=== PATIENT | male | born 1980 | race Caucasian/White ===

== ENCOUNTER 2019-10-29 17:04 | Inpatient (IN) | payer BC, OTHER ==
[2019-10-29] MEDS ORDERED: SODIUM CHLORIDE 1,000 ML IV STA ×2 (18:01→18:44)
[2019-10-29] MEDS ORDERED: ACETAMINOPHEN 1000 MG/100 ML VIAL (NON FORMULARY) IVPB ONE (18:01)
--- NOTE | 2019-10-29 18:02 | PDOC ---
History of Present Illness - General Chief Complaint: Cold Symptoms Stated Complaint: DEHYDRATION,FLULIKE SYMPTOMS Time Seen by Provider: 10/29/19 18:00 - History of Present Illness Initial Comments: 10/29/19 19:22 Chief complaint: Cough and shortness of breath HPI: Cough with purulent sputum, shortness of breath, fever, chills, body aches for 3 days. Today felt "unsteady on his feet". Limited intake of food and fluids. Went to urgent care today, flu swab was negative, referred to ER Review of systems: As noted above. Otherwise review is negative Past medical history: Healthy male, denies serious medical or surgical illness past or present. No home medications except occasional Xanax for sleep Social history: Denies smoking, alcohol, or drugs. 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 with similar respiratory illness 3 weeks ago. Family history: Reviewed and noncontributory Physical exam: Lethargic but oriented x3, shaking chills, no respiratory distress, tachypnea, or dyspnea. HEENT: Normal Neck supple without bruit mass or nodes Chest with rales at the right base posteriorly. Respiratory rate normal and oxygen saturation adequate CV mild tachycardia. No murmurs rubs or gallops. No JVD or edema Abdomen benign Skin with mild psoriasis, no other rash. Turgor adequate. Mucous membranes dry Neurological C2 to 12 intact. Strength full and symmetric. No focal sensorimotor deficits. Cerebellar function intact. Gait appears stable. But there is generalized weakness. Impression: Flulike illness, but flu swab was negative at urgent care. Rule out pneumonia. Dehydration. Plan: X-ray shows a right lower lobe infiltrate. Cultures obtained and antibiotics begun. Hospitalist was contacted and admission accepted under Dr Eduardo. Patient remains hemodynamically stable, and symptoms are improved with fluids, intravenous Tylenol, 10/31/19 07:25 Past History - Past Medical History Allergies/Adverse Reactions: Allergies Allergy/AdvReac Type Severity Reaction Status Date / Time No Known Allergies Allergy Verified 10/29/19 17:11 Home Medications: Ambulatory Orders Alprazolam [Xanax] 0.5 mg PO PRN 10/29/19 COPD: No Psychiatric Problems: Yes (anxiety) Other medical history: psoriastic arthritis - Psycho Social/Smoking Cessation Hx Smoking History: Never smoked Hx Alcohol Use: No Drug/Substance Use Hx: No *Physical Exam - Vital Signs Last Vital Signs Temp Pulse Resp BP Pulse Ox 100.6 F H 101 H 18 118/74 97 10/29/19 17:05 10/29/19 17:05 10/29/19 17:05 10/29/19 17:05 10/29/19 17:05 ED Treatment Course - LABORATORY CBC & Chemistry Diagram: 10/30/19 07:22 10/30/19 07:22 Medical Decision Making - Medical Decision Making 10/31/19 07:27 Chest x-ray Mara reviewed. There appears to be a patchy right lower lobe infiltrate. No effusion. EKG from urgent care center was reviewed. Normal Laboratories obtained here show a normal white blood count, mildly depressed sodium, and elevated lactic acid. Fluids were administered, blood cultures were obtained, and antibiotics were begun. Blood pressure is stable. Patient admitted and will follow lactic acid. Discharge - Discharge Information Problems reviewed: Yes Clinical Impression/Diagnosis: Pneumonia Qualifiers: Pneumonia type: due to unspecified organism Laterality: right Lung location: lower lobe of lung Qualified Code(s): J18.9 - Pneumonia, unspecified organism Condition: Stable - Admission Yes - Follow up/Referral - Patient Discharge Instructions - Post Discharge Activity
[2019-10-29] MEDS ORDERED: ACETAMINOPHEN INJECTION 100 ML IVPB ONE (18:08)
[2019-10-29 18:37] LABS: BASO % 0.5 % (0-2.0); HEMATOCRIT 44.9 % (35.4-49); HEMOGLOBIN 15.1 GM/dl (11.7-16.9); MCH 30.6 pg (25.7-33.7); MCHC 33.6 g/dl (32.0-35.9); MEAN PLT VOLUME 8.6 fl (7.5-11.1); MONO % 7.1 % (3.8-10.2); NEUT % 81.4 % (42.8-82.8); PLATELET COUNT 199 K/MM3 (134-434); RBC 4.93 M/mm3 (4.00-5.60); RDW 11.7 % (11.9-15.9); WHITE BLOOD COUNT 8.5 K/mm3 (4.0-10.8)
[2019-10-29 18:41] LABS: ALBUMIN 3.6 g/dl (3.4-5.0); BILIRUBIN,TOTAL 0.8 mg/dl (0.2-1); CREATININE 1.2 mg/dl (0.55-1.3); POTASSIUM 4.1 mmol/L (3.5-5.1); TOT PROT 7.2 g/dl (6.4-8.2)
[2019-10-29] MEDS ORDERED: CEFTRIAXONE 1,000 MG in DEXTROSE 5%-WATER - 50 ML IVPB ONE (18:44)
[2019-10-29] MEDS ORDERED: AZITHROMYCIN IVPB 500 MG in DEXTROSE 5%-WATER - 250 ML IVPB ONE (18:45)
[2019-10-29] MEDS ORDERED: cefTRIAXone SODIUM 1 GM VIAL ONE (18:56)
[2019-10-29] MEDS ORDERED: AZITHROMYCIN 500 MG VIAL IVPB ONE (18:56)
[2019-10-29 18:58] LABS: AMORP URATES 1+ /hpf (NONE SEEN); EPITHELIAL CELLS FEW /hpf; URINE MUCUS 1+
--- NOTE | 2019-10-29 20:36 | HP ---
Admitting History and Physical - Primary Care Physician PCP: Dr. Eduardo - Admission Chief Complaint: cold symptoms History of Present Illness: 39 year old male with no prior medical/surgical, does take xanax some times for anxiety arrived to ED at [place] for cough with purulent discharge, SOB, fever, chills, body ache for 3 days, also complain of limited fluids/ po intake. Patient went to flu swab was negative and sen to ER for further evaluation. History Source: Patient Limitations to Obtaining History: No Limitations - Past Medical History Psych: Yes: Anxiety - Past Surgical History Past Surgical History: Yes: None - Smoking History Smoking history: Never smoked - Alcohol/Substance Use Hx Alcohol Use: No History of Substance Use: reports: None - Social History Usual Living Arrangement: Yes: With Spouse ADL: Independent History of Recent Travel: No Home Medications - Allergies Allergies/Adverse Reactions: Allergies Allergy/AdvReac Type Severity Reaction Status Date / Time No Known Allergies Allergy Verified 10/29/19 17:11 - Home Medications Home Medications: Ambulatory Orders Alprazolam [Xanax] 0.5 mg PO PRN 10/29/19 Family Medical History Family History: Denies Review of Systems - Review of Systems Constitutional: reports: Chills, Fever, Loss of Appetite, Malaise Eyes: reports: No Symptoms HENT: reports: No Symptoms Neck: reports: No Symptoms Cardiovascular: reports: No Symptoms Respiratory: reports: Cough, SOB Gastrointestinal: reports: No Symptoms Genitourinary: reports: No Symptoms Musculoskeletal: reports: No Symptoms Integumentary: reports: No Symptoms Neurological: reports: No Symptoms Endocrine: reports: No Symptoms Hematology/Lymphatic: reports: No Symptoms Psychiatric: reports: No Symptoms Physical Examination Vital Signs: Vital Signs Temperature 98.9 F 10/29/19 19:40 Pulse Rate 93 H 10/29/19 19:40 Respiratory Rate 19 10/29/19 19:40 Blood Pressure 102/63 10/29/19 19:40 O2 Sat by Pulse Oximetry (%) 98 10/29/19 19:40 Constitutional: Yes: No Distress, Calm Eyes: Yes: Conjunctiva Clear, EOM Intact HENT: Yes: Atraumatic, Normocephalic Neck: Yes: Supple, Trachea Midline Cardiovascular: Yes: S1, S2 Respiratory: Yes: Regular, Rales Gastrointestinal: Yes: Normal Bowel Sounds, Soft Renal/: Yes: WNL Musculoskeletal: Yes: WNL Extremities: Yes: WNL Edema: No Peripheral Pulses WNL: Yes Integumentary: Yes: WNL Neurological: Yes: Alert, Oriented Labs: CBC, BMP 10/29/19 18:10 10/29/19 18:10 Imaging - Results Chest X-ray: Report Reviewed (X-ray shows a right lower lobe infiltrate.) Problem List - Problems (1) Anxiety Code(s): F41.9 - ANXIETY DISORDER, UNSPECIFIED (2) Pneumonia Code(s): J18.9 - PNEUMONIA, UNSPECIFIED ORGANISM Qualifiers: Pneumonia type: due to unspecified organism Laterality: right Lung location: lower lobe of lung Qualified Code(s): J18.9 - Pneumonia, unspecified organism Assessment/Plan 39 year old male with no prior medical/surgical, does take xanax some times for anxiety arrived to ED at [place] for cough with purulent discharge, SOB, fever, chills, body ache for 3 days, also complain of limited fluids/ po intake. Patient went to flu swab was negative and sen to ER for further evaluation. # Community acquired pneumonia - CXR: right lower lobe infiltrate - wbc:8.5, Tmax:100.6, Lactic acid: 2.5 ---> trend lactic level - UA: negative - follow up blood culture - In ED given Antipyretics,ceftriaxone/Azithromycin IVPBx1, given 2 L NS IVF - continue with Azithromycin and Ceftriaxone daily IVPB - continue with tylenol PRN - continue with nebs PRN - continue with o2 via NC PRN - Continue with IVF - follow up ID - follow up cbc, BMP in AM # anxiety - xanax 0.25 HS PRN FEN: NS IVF, monitor lytes, regular diet VTE: early ambulation, Heparin SQ Dispo: Med-surg Visit type - Emergency Visit Emergency Visit: Yes ED Registration Date: 10/29/19 Care time: The patient presented to the Emergency Department on the above date and was hospitalized for further evaluation of their emergent condition. - New Patient This patient is new to me today: Yes Date on this admission: 10/30/19 - Critical Care Critical Care patient: No
[2019-10-29] MEDS ORDERED: IPRATROPIUM BR 0.02% 0.5 MG/2.5 ML VIAL.NEB. NEB PRN (20:53)
[2019-10-29] MEDS ORDERED: ALBUTEROL SO4 0.083% IH SOL 2.5 MG/3 ML VIAL.NEB. NEB PRN (20:53)
[2019-10-29] MEDS ORDERED: SODIUM CHLORIDE 1,000 ML IV SCH (21:00)
[2019-10-29 22:21] VITALS: BMI 22.1
[2019-10-29] MEDS: ALPRAZolam 0.25 MG TABLET PO PRN (23:05)
[2019-10-29] MEDS: HEPARIN NA (PORCINE) 5,000 UNITS/ML 1ML VIAL SQ SCH (23:05)
[2019-10-30] MEDS: ACETAMINOPHEN 325 MG TABLET (FP) PO PRN ×2 (04:38→09:54)
[2019-10-30 08:19] LABS: HEMATOCRIT 39.8 % (35.4-49); HEMOGLOBIN 13.6 GM/dl (11.7-16.9); MCH 31.3 pg (25.7-33.7); MCHC 34.3 g/dl (32.0-35.9); MEAN CELL VOLUME 91.3 fl (80-96); MEAN PLT VOLUME 8.4 fl (7.5-11.1); PLATELET COUNT 172 K/MM3 (134-434); RBC 4.36 M/mm3 (4.00-5.60); RDW 11.4 % (11.9-15.9); WHITE BLOOD COUNT 5.4 K/mm3 (4.0-10.8)
[2019-10-30 08:25] LABS: CALCIUM 8.1 mg/dl (8.5-10); CREATININE 0.9 mg/dl (0.55-1.3); POTASSIUM 4.1 mmol/L (3.5-5.1)
[2019-10-30] MEDS ORDERED: SODIUM CHLORIDE 1,000 ML IV STA ×2 (09:52→10:16)
[2019-10-30] MEDS ORDERED: SODIUM CHLORIDE 1,000 ML IV SCH (09:52)
[2019-10-30] MEDS: HEPARIN NA (PORCINE) 5,000 UNITS/ML 1ML VIAL SQ SCH ×2 (09:53→21:49)
[2019-10-30] MEDS: AZITHROMYCIN IVPB 500 MG/250 ML BAG IVPB SCH (09:54)
[2019-10-30] MEDS ORDERED: CEFTRIAXONE 1 G/50 ML PREMIX 50 ML IVPB SCH (10:00)
--- NOTE | 2019-10-30 10:13 | PN ---
Progress Note (short form) - Note Progress Note: ID CONSULT DICTATED R/O COMMUNITY ACQUIRED V. ATYPICAL PNEUMONIA ? VIRAL SYNDROME AWAIT C/S VIRAL RESP PANEL EMPIRIC CEFTRIAXONE/ ZITHROMAX
--- NOTE | 2019-10-30 10:59 | CONS ---
INFECTIOUS DISEASE CONSULTATION DATE OF CONSULTATION: DATE OF DICTATION: 10/30/2019 HISTORY: The patient is a 39-year-old male previously healthy evaluated for possible pneumonia. He presented to the emergency room with a 3-day history of cough productive of sputum production, subjective fevers, chills, body aches, and anorexia. He was evaluated in the emergency room where he was noted to have fever at 100.6. Cultures were obtained. He was empirically treated with Zithromax and ceftriaxone. The patient lives at home with his who recently had an upper respiratory tract infection for the past 2-3 weeks. He reports cough productive of yellowish sputum. He denies any hemoptysis. He complains of chest tightness and dyspnea. No nausea, vomiting. He denies any recent hospitalizations or recent antibiotic therapy. He has a history of psoriasis, however, is not on immunosuppressive therapy. He is a nonsmoker. Recent travel to [place]. He has not received influenza or pneumococcal vaccines. PAST MEDICAL HISTORY: Positive for psoriasis treated with topical therapy. No history of anti-TNF agents. ALLERGIES: No known allergies. MEDICATIONS: Include vancomycin, ceftriaxone, Tylenol, Xanax. SOCIAL HISTORY: He worked in [employer]. Nonsmoker. Occasional ETOH. SYSTEMS REVIEW: Neurologic: No loss of consciousness, seizure activity, focal weakness. Cardiac: Negative chest pain or palpitations. Respiratory: As per HPI. Gastrointestinal: Negative vomiting or diarrhea. Genitourinary: Negative for urinary tract infection. LABORATORY DATA: White count 8.4, hematocrit 44.9, platelets 199, creatinine 1.2, lactic acid 2.5. Urinalysis 0-2 white cells. Chest x-ray shows increased markings at the right base suggestive of infiltrate. PHYSICAL EXAMINATION: General: On exam, he is awake and alert. He is not acutely toxic appearing. Vital Signs: Temperature 101.4, blood pressure 119/77, pulse 116 regular, respirations 19 per minute. HEENT: Sclerae anicteric. Heart: Sounds S1, S2. Lungs: Few rhonchi bilaterally. Abdomen: Soft, nontender. Extremities: Negative for edema. IMPRESSION: 1. Rule out community-acquired versus atypical right lower lobe pneumonia. 2. Possible viral syndrome. 3. Psoriasis, not on immunosuppressive therapy. PLAN: Await cultures. Obtain viral respiratory panel. Urine Legionella antigen. Sputum culture. Empiric antibiotic coverage with ceftriaxone and Zithromax. We will follow. Thank you for the kind referral. DENA NGUYỄN M.D. [id number]
[2019-10-30] MEDS: SODIUM CHLORIDE 1,000 ML IV SCH (11:14)
[2019-10-30] MEDS: ACETAMINOPHEN 325 MG TABLET (FP) PO SCH ×2 (11:15→16:47)
[2019-10-30] MEDS ORDERED: IBUPROFEN 800 MG/8 ML IJ IVPB ONE (14:45)
[2019-10-30] MEDS: ALBUTEROL SO4 2.5/IPRATROPIUM 0.5 INH SOL 3 ML VIAL.NEB. NEB SCH ×2 (15:49→21:49)
--- NOTE | 2019-10-30 18:42 | CON.PULM ---
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 WENT TO [facility] AND HAD NEGATIVE FLU TEST. CAME TO ED AND FOUND TO HAVE PNEUMONIA HENCE ADMITTED FOR TREATMENT. PATIENT'S WAS ILL WITH SIMILAR SYMPTOMS. - History Source History Provided By: Patient, Family Member Limitations to Obtaining History: No Limitations - Past Medical History [employer]CR[employer]: No: Alzheimer's Cardio/Vascular: No: AFIB Pulmonary: No: Asthma Gastrointestinal: No: Ascites Hepatobiliary: No: Cirrhosis Renal/: No: Renal Failure Heme/Onc: No: Anemia Psych: Yes: Anxiety - Past Surgical History Past Surgical History: Yes: None - Alcohol/Substance Use Hx Alcohol Use: No History of Substance Use: reports: None - Smoking History Smoking history: Never smoked Have you smoked in the past 12 months: No - Social History ADL: Independent Place of : Other History of Recent Travel: No Home Medications - Allergies Allergies/Adverse Reactions: Allergies Allergy/AdvReac Type Severity Reaction Status Date / Time No Known Allergies Allergy Verified 10/29/19 17:11 - Home Medications Home Medications: Ambulatory Orders Alprazolam [Xanax] 0.5 mg PO PRN 10/29/19 Review of Systems - Review of Systems Constitutional: reports: Fever Eyes: denies: Blurred Vision HENT: denies: Difficult Swallowing Neck: denies: Decreased ROM Cardiovascular: denies: Chest Pain Respiratory: reports: Cough, Exercise Intolerance, SOB, SOB on Exertion, Wheezing. denies: Hemoptysis Gastrointestinal: denies: Abdominal Pain Genitourinary: denies: Burning Physical Exam Vital Sings: Vital Signs Temperature 101.0 F H 10/30/19 15:59 Pulse Rate 118 H 10/30/19 14:36 Respiratory Rate 18 10/30/19 14:36 Blood Pressure 129/84 10/30/19 14:36 O2 Sat by Pulse Oximetry (%) 97 10/30/19 09:00 Constitutional: Yes: Calm Eyes: Yes: EOM Intact HENT: Yes: Normocephalic Neck: Yes: Trachea Midline Cardiovascular: Yes: Regular Rate and Rhythm, S1, S2 Respiratory: Yes: Rhonchi (RIGHT BASE) Gastrointestinal: Yes: Normal Bowel Sounds Edema: No Labs: CBC, BMP 10/30/19 07:22 10/30/19 07:22 Imaging - Results Chest X-ray: Report Reviewed, Image Reviewed Cat Scan: Report Reviewed, Image Reviewed Problem List - Problems (1) Anxiety Code(s): F41.9 - ANXIETY DISORDER, UNSPECIFIED (2) Pneumonia Code(s): J18.9 - PNEUMONIA, UNSPECIFIED ORGANISM Qualifiers: Pneumonia type: due to unspecified organism Laterality: right Lung location: lower lobe of lung Qualified Code(s): J18.9 - Pneumonia, unspecified organism Assessment/Plan PANCULTURE/IV ABS/SHORT COURSE STEROIDS BRONCHODILATORS/O2/DVT PROPHYLAXSIS ID EVAL AND WORKUP NOTED Simin WONG MD
[2019-10-30] MEDS: methylPREDNISolone NA SUCC 40 MG/1 ML VIAL IVPUSH SCH ×2 (19:29→21:49)
[2019-10-30] MEDS ORDERED: IBUPROFEN 800 MG/8 ML IJ IVPB PRN (21:09)
--- NOTE | 2019-10-30 21:17 | PN ---
Documentation entered by Kate Knapp SCRIBE, acting as scribe for Zeina Zuñiga NP. Physical Exam: SUBJECTIVE: Patient seen and examined. Patient states he is still feeling warm, otherwise feeling much better than prior to arrival. Pt reports his had bronchitis for several weeks. He did not get a flu shot. OBJECTIVE: Vital Signs Period Temp Pulse Resp BP Sys/[place] Pulse Ox Last 24 Hr 97.9 F-101.4 F 86-116 18-19 102-119/63-77 97-100 GENERAL: A&Ox3, in no acute distress. Pale LUNGS: Diminished breath sounds RML, RLL posteriorly. HEART: Regular rate and rhythm, S1, S2 ABDOMEN: Soft, nontender, nondistended EXTREMITIES: 2+ pulses, warm, well-perfused, no edema. NEUROLOGICAL: Cranial nerves II through XII grossly intact. Normal speech, gait not observed. PSYCH: Normal mood, normal affect. SKIN: Warm, dry, normal turgor Laboratory Results - last 24 hr 10/29/19 10/29/19 10/29/19 18:10 18:10 18:10 WBC 8.5 RBC 4.93 Hgb 15.1 Hct 44.9 MCV 91.0 MCH 30.6 MCHC 33.6 RDW 11.7 L Plt Count 199 MPV 8.6 Absolute Neuts (auto) 7.0 Neutrophils % 81.4 Lymphocytes % 11.0 Monocytes % 7.1 Eosinophils % 0.0 Basophils % 0.5 Sodium 131 L Potassium 4.1 Chloride 98 Carbon Dioxide 24 Anion Gap 9 BUN 15.0 Creatinine 1.2 Est GFR (CKD-EPI)AfAm 87.75 Est GFR (CKD-EPI)NonAf 75.72 Random Glucose 151 H Lactic Acid Calcium 9.0 Total Bilirubin 0.8 AST 22 ALT 22 Alkaline Phosphatase 51 Total Protein 7.2 Albumin 3.6 Urine Color Yellow Urine Appearance Clear Urine pH 6.0 Urine Protein 1+ H Urine Glucose (UA) Negative Urine Ketones Negative Urine Blood 1+ H Urine Nitrite Negative Urine Bilirubin Negative Urine Urobilinogen 0.2 Ur Leukocyte Esterase Negative Urine RBC 5-10 Urine WBC 0-2 Ur Transition Epith Cell Few Amorphous Urates 1+ Urine Mucus 1+ 10/29/19 10/30/19 10/30/19 18:45 04:00 07:22 WBC 5.4 RBC 4.36 Hgb 13.6 Hct 39.8 MCV 91.3 MCH 31.3 MCHC 34.3 RDW 11.4 L Plt Count 172 MPV 8.4 Absolute Neuts (auto) Neutrophils % Lymphocytes % Monocytes % Eosinophils % Basophils % Sodium Potassium Chloride Carbon Dioxide Anion Gap BUN Creatinine Est GFR (CKD-EPI)AfAm Est GFR (CKD-EPI)NonAf Random Glucose Lactic Acid 2.5 H* 1.7 Calcium Total Bilirubin AST ALT Alkaline Phosphatase Total Protein Albumin Urine Color Urine Appearance Urine pH Urine Protein Urine Glucose (UA) Urine Ketones Urine Blood Urine Nitrite Urine Bilirubin Urine Urobilinogen Ur Leukocyte Esterase Urine RBC Urine WBC Ur Transition Epith Cell Amorphous Urates Urine Mucus 10/30/19 07:22 WBC RBC Hgb Hct MCV MCH MCHC RDW Plt Count MPV Absolute Neuts (auto) Neutrophils % Lymphocytes % Monocytes % Eosinophils % Basophils % Sodium 133 L Potassium 4.1 Chloride 103 Carbon Dioxide 22 Anion Gap 8 BUN 11.0 Creatinine 0.9 Est GFR (CKD-EPI)AfAm 124.26 Est GFR (CKD-EPI)NonAf 107.21 Random Glucose 118 H Lactic Acid Calcium 8.1 L Total Bilirubin AST ALT Alkaline Phosphatase Total Protein Albumin Urine Color Urine Appearance Urine pH Urine Protein Urine Glucose (UA) Urine Ketones Urine Blood Urine Nitrite Urine Bilirubin Urine Urobilinogen Ur Leukocyte Esterase Urine RBC Urine WBC Ur Transition Epith Cell Amorphous Urates Urine Mucus Active Medications Generic Name Dose Route Start Last Admin Trade Name Keenanq PRN Reason Stop Dose Admin Acetaminophen 650 mg 10/29/19 20:53 10/30/19 04:38 Tylenol - PO 650 mg Q4H PRN Administration FEVER Albuterol Sulfate 1 amp 10/29/19 20:53 Ventolin 0.083% Nebulizer Soln - NEB Q6H PRN SHORT OF BREATH/WHEEZING Alprazolam 0.25 mg 10/29/19 20:53 10/29/19 23:05 Xanax - PO 0.25 mg HS PRN Administration ANXIETY Heparin Sodium (Porcine) 5,000 unit 10/29/19 22:00 10/29/19 23:05 Heparin - SQ 5,000 unit BID HECTOR Administration Sodium Chloride 1,000 mls @ 42 mls/hr 10/29/19 21:00 10/29/19 21:07 Normal Saline - IV 42 mls/hr ASDIR HECTOR Administration Azithromycin 500 mg in 250 mls @ 250 mls/hr 10/30/19 10:00 Zithromax 500mg Ivpb (Pre-Docked) IVPB 11/04/19 09:59 DAILY [facility] Ceftriaxone Sodium 50 mls @ 100 mls/hr 10/30/19 10:00 Ceftriaxone 1 Gm-D5w Bag IVPB 11/04/19 23:59 DAILY [facility] Protocol Ipratropium [place] 1 amp 10/29/19 20:53 Atrovent 0.02% Nebulizer - NEB Q6H PRN WHEEZING ASSESSMENT/PLAN: 39 year-old male with no significant PMH admitted for severe sepsis secondary to pneumonia. Severe sepsis secondary to community-acquired pneumonia --met severe sepsis criteria on admission: T100.6, p101, infiltrate right lung base, lactic acid 2.5 --10/30 CT chest: extensive consolidation RLL --spiked to 102.9 today, no leukocytosis --fluid bolused 2L, BP stable but tachycardic, making good urine --continue ceftriaxone (day #2) and azithromycin (day #2) --duonebs scheduled --rapid flu negative --Legionella pending --respiratory virus panel PCR pending --blood cultures NGTD --Tylenol, Motrin PRN for fever Mild anxiety --continue xanax PRN FEN Fluids: NS@125mL/hr Electrolytes: replete as indicated Nutrition: regular diet DVT prophylaxis: subq heparin Dispo: continues to require inpatient care. Full code. Visit type - Emergency Visit Emergency Visit: Yes ED Registration Date: 10/29/19 Care time: The patient presented to the Emergency Department on the above date and was hospitalized for further evaluation of their emergent condition. - New Patient This patient is new to me today: Yes Date on this admission: 10/30/19 - Critical Care Critical Care patient: Yes Total Critical Care Time (in minutes): 45 Critical Care Statement: The care of this patient involved high complexity decision making to prevent further life threatening deterioration of the patient 's condition and/or to evaluate & treat vital organ system(s) failure or risk of failure. Zeina Zuñiga NP: This documentation has been prepared by the Ra jolly Maria, SCRIBE, under my direction and personally reviewed by me in its entirety. I confirm that the documentation accurately reflects all work, treatment, procedures, and medical decision making performed by me.
[2019-10-31] MEDS: methylPREDNISolone NA SUCC 40 MG/1 ML VIAL IVPUSH SCH ×4 (03:00→21:56)
[2019-10-31 08:13] LABS: ALBUMIN 2.7 g/dl (3.4-5.0); BILIRUBIN,TOTAL 0.4 mg/dl (0.2-1); CREATININE 0.7 mg/dl (0.55-1.3); POTASSIUM 4.2 mmol/L (3.5-5.1); TOT PROT 5.8 g/dl (6.4-8.2)
[2019-10-31 08:21] LABS: EOS % 0.1 % (0-4.5); MEAN CELL VOLUME 92.1 fl (80-96)
[2019-10-31 08:23] LABS: HEMATOCRIT 38.4 % (35.4-49); HEMOGLOBIN 12.8 GM/dl (11.7-16.9); LYMPH % 11.6 % (8-40); MCH 30.7 pg (25.7-33.7); MCHC 33.3 g/dl (32.0-35.9); MEAN PLT VOLUME 8.4 fl (7.5-11.1); MONO % 3.2 % (3.8-10.2); NEUT % 85.1 % (42.8-82.8); PLATELET COUNT 159 K/MM3 (134-434); RBC 4.17 M/mm3 (4.00-5.60); RDW 11.8 % (11.9-15.9); WHITE BLOOD COUNT 3.8 K/mm3 (4.0-10.8)
[2019-10-31] MEDS: HEPARIN NA (PORCINE) 5,000 UNITS/ML 1ML VIAL SQ SCH ×2 (09:35→21:56)
[2019-10-31] MEDS: AZITHROMYCIN IVPB 500 MG/250 ML BAG IVPB SCH (09:35)
--- NOTE | 2019-10-31 09:44 | PN ---
Progress Note, Physician History of Present Illness: AWAKE, ALERT OOB IN CHAIR + COUGH YELLOW SPUTUM SCANT BLOOD STREAKED NO C/O DYSPNEA/ CHEST PAIN NO C/O FEVER/ CHILLS TEMPS DOWN CT CHEST EXTENSIVE RLL CONSOLIDATION - Current Medication List Current Medications: Active Medications Acetaminophen (Tylenol -) 650 mg PO Q6H HECTOR Last Admin: 10/30/19 16:47 Dose: 650 mg Albuterol/Ipratropium (Duoneb -) 1 amp NEB RTID HECTOR Last Admin: 10/30/19 21:49 Dose: 1 amp Alprazolam (Xanax -) 0.25 mg PO HS PRN PRN Reason: ANXIETY Last Admin: 10/29/19 23:05 Dose: 0.25 mg Heparin Sodium (Porcine) (Heparin -) 5,000 unit SQ BID HECTOR Last Admin: 10/31/19 09:35 Dose: 5,000 unit Azithromycin (Zithromax 500mg Ivpb (Pre-Docked)) 500 mg in 250 mls @ 250 mls/ hr IVPB DAILY [facility] Stop: 11/04/19 09:59 Last Admin: 10/31/19 09:35 Dose: 250 mls/hr Ceftriaxone Sodium (Ceftriaxone 1 Gm-D5w Bag) 50 mls @ 100 mls/hr IVPB DAILY [facility]; Protocol Stop: 11/04/19 23:59 Last Admin: 10/30/19 09:53 Dose: 100 mls/hr Sodium Chloride (Normal Saline -) 1,000 mls @ 125 mls/hr IV ASDIR HECTOR Last Admin: 10/30/19 11:14 Dose: 125 mls/hr Ibuprofen (Caldolor Injection -) 800 mg IVPB Q8H PRN PRN Reason: FEVER Methylprednisolone Sodium Succinate (Solu-Medrol -) 40 mg IVPUSH Q6H-IV HECTOR Stop: 11/01/19 08:00 Last Admin: 10/31/19 09:35 Dose: 40 mg - Objective Vital Signs: Vital Signs Temperature 97.3 F L 10/31/19 06:20 Pulse Rate 82 10/31/19 06:20 Respiratory Rate 18 10/31/19 06:20 Blood Pressure 106/72 10/31/19 06:20 O2 Sat by Pulse Oximetry (%) 98 10/31/19 08:36 Constitutional: Yes: No Distress Eyes: Yes: Conjunctiva Clear Cardiovascular: Yes: Regular Rate and Rhythm, S1, S2 Respiratory: Yes: Other (DECREASED BS R BASE) Gastrointestinal: Yes: Normal Bowel Sounds, Soft. No: Tenderness Edema: No Labs: CBC, BMP 10/31/19 07:26 10/31/19 07:26 Assessment/Plan RLL COMMUNITY ACQUIRED V. ATYPICAL PNEUMONIA AWAIT C/S CONTINUE ZITHROMAX/ CEFTRIAXONE
--- NOTE | 2019-10-31 09:59 | PN ---
Progress Note (short form) - Note Progress Note: PULMONARY AWAKE/ALERT/AFEBRILE ANICTERIC RIGHT BASE DIMINISHED SOUNDS W RHONCHI S1S2 NO M BS+ NO EDEMA LABS/MEDS/NOTES/IMAGES REVIEWED ID INCREASED CONCENTRATION OF ROCEPHIN TO 2 GMS (1) Anxiety Code(s): F41.9 - ANXIETY DISORDER, UNSPECIFIED (2) Pneumonia Code(s): J18.9 - PNEUMONIA, UNSPECIFIED ORGANISM Qualifiers: Pneumonia type: due to unspecified organism Laterality: right Lung location: lower lobe of lung Qualified Code(s): J18.9 - Pneumonia, unspecified organism Assessment/Plan PANCULTURE AND URINE ANTIGENS ARE NEGATIVE /IV ABS/SHORT COURSE STEROIDS BRONCHODILATORS/O2/DVT PROPHYLAXSIS ID EVAL AND WORKUP NOTED R MARVIN RINALDI Problem List - Problems (1) Anxiety Code(s): F41.9 - ANXIETY DISORDER, UNSPECIFIED (2) Pneumonia Code(s): J18.9 - PNEUMONIA, UNSPECIFIED ORGANISM Qualifiers: Pneumonia type: due to unspecified organism Laterality: right Lung location: lower lobe of lung Qualified Code(s): J18.9 - Pneumonia, unspecified organism
[2019-10-31] MEDS: ALBUTEROL SO4 2.5/IPRATROPIUM 0.5 INH SOL 3 ML VIAL.NEB. NEB SCH ×3 (10:13→21:55)
[2019-10-31] MEDS: CEFTRIAXONE 2 GM-D5W BAG 2 GM/50 ML BAG IVPB SCH (11:00)
[2019-10-31] MEDS: ACETAMINOPHEN 325 MG TABLET (FP) PO SCH ×3 (11:30→21:56)
[2019-10-31] MEDS: SODIUM CHLORIDE 1,000 ML IV SCH (14:14)
--- NOTE | 2019-10-31 14:53 | PN ---
Documentation entered by Kate Knapp SCRIBE, acting as scribe for Zeina Zuñiga NP. Physical Exam: SUBJECTIVE: Patient seen and examined. Feels a little better. Denies fever, sweats, chills. OBJECTIVE: Vital Signs Period Temp Pulse Resp BP Sys/Livingston Pulse Ox Last 24 Hr 97.3 F-102.9 F 82-118 18-18 104-129/68-84 97-98 GENERAL: A&Ox3, in no acute distress. Pale LUNGS: Diminished breath sounds RML, RLL posteriorly. Poor air movement bilaterally. HEART: Regular rate and rhythm, S1, S2 ABDOMEN: Soft, nontender, nondistended EXTREMITIES: 2+ pulses, warm, well-perfused, no edema. NEUROLOGICAL: Cranial nerves II through XII grossly intact. Normal speech, gait not observed. Laboratory Results - last 24 hr 10/30/19 10/30/19 10/30/19 07:22 07:22 10:00 WBC 5.4 RBC 4.36 Hgb 13.6 Hct 39.8 MCV 91.3 MCH 31.3 MCHC 34.3 RDW 11.4 L Plt Count 172 MPV 8.4 Sodium 133 L Potassium 4.1 Chloride 103 Carbon Dioxide 22 Anion Gap 8 BUN 11.0 Creatinine 0.9 Est GFR (CKD-EPI)AfAm 124.26 Est GFR (CKD-EPI)NonAf 107.21 Random Glucose 118 H Lactic Acid Calcium 8.1 L Influenza A (Rapid) Negative Influenza B (Rapid) Negative 10/30/19 10:00 WBC RBC Hgb Hct MCV MCH MCHC RDW Plt Count MPV Sodium Potassium Chloride Carbon Dioxide Anion Gap BUN Creatinine Est GFR (CKD-EPI)AfAm Est GFR (CKD-EPI)NonAf Random Glucose Lactic Acid 1.0 Calcium Influenza A (Rapid) Influenza B (Rapid) Active Medications Generic Name Dose Route Start Last Admin Trade Name Freq PRN Reason Stop Dose Admin Acetaminophen 650 mg 10/30/19 10:30 10/30/19 16:47 Tylenol - PO 650 mg Q6H HECTOR Administration Albuterol/Ipratropium 1 amp 10/30/19 14:00 10/30/19 21:49 Duoneb - NEB 1 amp RTID HECTOR Administration Alprazolam 0.25 mg 10/29/19 20:53 10/29/19 23:05 Xanax - PO 0.25 mg HS PRN Administration ANXIETY Heparin Sodium (Porcine) 5,000 unit 10/29/19 22:00 10/30/19 21:49 Heparin - SQ 5,000 unit BID HECTOR Administration Azithromycin 500 mg in 250 mls @ 250 mls/hr 10/30/19 10:00 10/30/19 09:54 Zithromax 500mg Ivpb (Pre-Docked) IVPB 11/04/19 09:59 250 mls/hr DAILY HECTOR Administration Ceftriaxone Sodium 50 mls @ 100 mls/hr 10/30/19 10:00 10/30/19 09:53 Ceftriaxone 1 Gm-D5w Bag IVPB 11/04/19 23:59 100 mls/hr DAILY HECTOR Administration Protocol Sodium Chloride 1,000 mls @ 125 mls/hr 10/30/19 10:17 10/30/19 11:14 Normal Saline - IV 125 mls/hr ASDIR HECTOR Administration Ibuprofen 800 mg 10/30/19 21:09 Caldolor Injection - IVPB Q8H PRN FEVER Methylprednisolone Sodium Succinate 40 mg 10/30/19 18:45 10/31/19 03:00 Solu-Medrol - IVPUSH 11/01/19 08:00 40 mg Q6H-IV HECTOR Administration ASSESSMENT/PLAN: 39 year-old male with no significant PMH admitted for severe sepsis secondary to pneumonia. Severe sepsis secondary to community-acquired pneumonia --Tm 102.9, Tc 97.3; no leukocytosis; lactic acid trended to wnl; tachycardia resolved, BP stable --10/30 CT chest: extensive consolidation RLL --continue ceftriaxone (day #3) and azithromycin (day #3) --stop IV fluids --duonebs scheduled --rapid flu negative; urine pna Ag negative; blood cultures NGTD --Tylenol, Motrin PRN for fever --encouraged incentive spirometer Mild anxiety --continue xanax PRN FEN Fluids: PO intake adequate Electrolytes: replete as indicated Nutrition: regular diet DVT prophylaxis: subq heparin Dispo: continues to require inpatient care. Full code. Visit type - Emergency Visit Emergency Visit: Yes ED Registration Date: 10/29/19 Care time: The patient presented to the Emergency Department on the above date and was hospitalized for further evaluation of their emergent condition. - New Patient This patient is new to me today: No - Critical Care Critical Care patient: No Zeina Zuñiga NP: This documentation has been prepared by the Ra jolly Maria, SCRIBE, under my direction and personally reviewed by me in its entirety. I confirm that the documentation accurately reflects all work, treatment, procedures, and medical decision making performed by me.
[2019-11-01] MEDS: methylPREDNISolone NA SUCC 40 MG/1 ML VIAL IVPUSH SCH (02:50)
[2019-11-01] MEDS: ACETAMINOPHEN 325 MG TABLET (FP) PO SCH ×4 (04:30→21:35)
[2019-11-01] MEDS: ALBUTEROL SO4 2.5/IPRATROPIUM 0.5 INH SOL 3 ML VIAL.NEB. NEB SCH ×3 (08:57→20:29)
[2019-11-01 09:05] LABS: BASO % 0.1 % (0-2.0); HEMOGLOBIN 12.7 GM/dl (11.7-16.9); LYMPH % 11.6 % (8-40); MCHC 33.3 g/dl (32.0-35.9); MEAN CELL VOLUME 92.8 fl (80-96); NEUT % 83.3 % (42.8-82.8); PLATELET COUNT 237 K/MM3 (134-434); WHITE BLOOD COUNT 6.5 K/mm3 (4.0-10.8)
[2019-11-01 09:11] LABS: ALBUMIN 2.9 g/dl (3.4-5.0); BILIRUBIN,TOTAL 0.8 mg/dl (0.2-1); CALCIUM 8.6 mg/dl (8.5-10); CREATININE 0.7 mg/dl (0.55-1.3); MAGNESIUM 2.1 mg/dL (1.8-2.4); POTASSIUM 4.7 mmol/L (3.5-5.1)
[2019-11-01] MEDS: AZITHROMYCIN IVPB 500 MG/250 ML BAG IVPB SCH (09:48)
[2019-11-01] MEDS: CEFTRIAXONE 2 GM-D5W BAG 2 GM/50 ML BAG IVPB SCH (09:49)
[2019-11-01] MEDS: HEPARIN NA (PORCINE) 5,000 UNITS/ML 1ML VIAL SQ SCH ×2 (09:49→21:10)
--- NOTE | 2019-11-01 16:43 | PN ---
Documentation entered by Kate Knapp SCRIBE, acting as scribe for Zeina Zuñiga NP. Physical Exam: SUBJECTIVE: Patient seen and examined. Feeling better. Eating well but not sleeping well. No fevers, sweats, chills. OBJECTIVE: Vital Signs Period Temp Pulse Resp BP Sys/Livingston Pulse Ox Last 24 Hr 98.1 F-98.5 F 81-108 18-18 112-125/61-80 96-98 GENERAL: A&Ox3, in no acute distress. LUNGS: Diminished breath sounds at the right base. Overall much improved air movement. No wheezing, no rhonchi. HEART: Regular rate and rhythm, S1, S2 ABDOMEN: Soft, nontender, nondistended EXTREMITIES: 2+ pulses, warm, well-perfused, no edema. NEUROLOGICAL: Cranial nerves II through XII grossly intact. Normal speech, gait not observed. Laboratory Results - last 24 hr 11/01/19 11/01/19 08:37 08:37 WBC 6.5 RBC 4.10 Hgb 12.7 Hct 38.0 MCV 92.8 MCH 31.0 MCHC 33.3 RDW 12.0 Plt Count 237 D MPV 9.0 Absolute Neuts (auto) 5.4 Neutrophils % 83.3 H Lymphocytes % 11.6 Monocytes % 5.0 Eosinophils % 0.0 D Basophils % 0.1 D Sodium 136 Potassium 4.7 Chloride 106 Carbon Dioxide 21 Anion Gap 9 BUN 14.0 Creatinine 0.7 Est GFR (CKD-EPI)AfAm 137.78 Est GFR (CKD-EPI)NonAf 118.88 Random Glucose 166 H Calcium 8.6 Magnesium 2.1 Total Bilirubin 0.8 AST 42 H ALT 61 Alkaline Phosphatase 52 Total Protein 6.0 L Albumin 2.9 L Active Medications Generic Name Dose Route Start Last Admin Trade Name Freq PRN Reason Stop Dose Admin Acetaminophen 650 mg 10/30/19 10:30 11/01/19 04:30 Tylenol - PO Not Given Q6H HECTOR Albuterol/Ipratropium 1 amp 10/30/19 14:00 11/01/19 08:57 Duoneb - NEB 1 amp RTID HECTOR Administration Alprazolam 0.25 mg 10/29/19 20:53 10/29/19 23:05 Xanax - PO 0.25 mg HS PRN Administration ANXIETY Heparin Sodium (Porcine) 5,000 unit 10/29/19 22:00 11/01/19 09:49 Heparin - SQ 5,000 unit BID HECTOR Administration Azithromycin 500 mg in 250 mls @ 250 mls/hr 10/30/19 10:00 11/01/19 09:48 Zithromax 500mg Ivpb (Pre-Docked) IVPB 11/04/19 09:59 250 mls/hr DAILY HECTOR Administration Ceftriaxone Sodium 2 gm in 50 mls @ 100 mls/hr 10/31/19 10:30 11/01/19 09:49 Ceftriaxone 2 Gm-D5w Bag IVPB 100 mls/hr DAILY HECTOR Administration Protocol Ibuprofen 800 mg 10/30/19 21:09 Caldolor Injection - IVPB Q8H PRN FEVER ASSESSMENT/PLAN: 39 year-old male with no significant PMH admitted for severe sepsis secondary to pneumonia. Severe sepsis secondary to community-acquired pneumonia --afebrile >48 hours, no leukocytosis --10/30 CT chest: extensive consolidation RLL --continue ceftriaxone (day #4) and azithromycin (day #4) --duonebs scheduled --rapid flu negative; urine pna Ag negative; blood cultures NGTD; respiratory virus PCR panel pending Mild anxiety --continue xanax PRN FEN Fluids: PO intake adequate Electrolytes: replete as indicated Nutrition: regular diet DVT prophylaxis: subq heparin Dispo: continues to require inpatient care. Full code. Visit type - Emergency Visit Emergency Visit: Yes ED Registration Date: 10/29/19 Care time: The patient presented to the Emergency Department on the above date and was hospitalized for further evaluation of their emergent condition. - New Patient This patient is new to me today: No - Critical Care Critical Care patient: No Zeina Zuñiga, SURGERY CONSULTANT: This documentation has been prepared by the Ra jolly Maria, SCRIBE, under my direction and personally reviewed by me in its entirety. I confirm that the documentation accurately reflects all work, treatment, procedures, and medical decision making performed by me.
[2019-11-01] MEDS ORDERED: diphenhydrAMINE HCL 25 MG CAPSULE (FP) PO ONE (22:00)
[2019-11-01] MEDS: ALPRAZolam 0.25 MG TABLET PO PRN (23:07)
[2019-11-02] MEDS: ACETAMINOPHEN 325 MG TABLET (FP) PO SCH ×3 (04:30→10:24)
[2019-11-02 08:13] LABS: BASO % 0.3 % (0-2.0); EOS % 0.4 % (0-4.5); HEMATOCRIT 36.6 % (35.4-49); HEMOGLOBIN 12.1 GM/dl (11.7-16.9); LYMPH % 18.8 % (8-40); MCH 30.9 pg (25.7-33.7); MEAN CELL VOLUME 93.4 fl (80-96); MEAN PLT VOLUME 8.7 fl (7.5-11.1); MONO % 5.4 % (3.8-10.2); NEUT % 75.1 % (42.8-82.8); PLATELET COUNT 261 K/MM3 (134-434); RBC 3.92 M/mm3 (4.00-5.60); RDW 12.2 % (11.9-15.9); WHITE BLOOD COUNT 8.5 K/mm3 (4.0-10.8)
[2019-11-02] MEDS: ALBUTEROL SO4 2.5/IPRATROPIUM 0.5 INH SOL 3 ML VIAL.NEB. NEB SCH (08:14)
[2019-11-02 09:32] LABS: ALBUMIN 2.8 g/dl (3.4-5.0); BILIRUBIN,TOTAL 0.2 mg/dl (0.2-1); CALCIUM 8.2 mg/dl (8.5-10); CREATININE 0.8 mg/dl (0.55-1.3); MAGNESIUM 2.1 mg/dL (1.8-2.4); POTASSIUM 3.9 mmol/L (3.5-5.1); TOT PROT 5.5 g/dl (6.4-8.2)
[2019-11-02 10:20] VITALS: BP 116/72; PULSE 72; TEMP 97
[2019-11-02] MEDS: CEFTRIAXONE 2 GM-D5W BAG 2 GM/50 ML BAG IVPB SCH (10:23)
[2019-11-02] MEDS: HEPARIN NA (PORCINE) 5,000 UNITS/ML 1ML VIAL SQ SCH (10:24)
[2019-11-02] MEDS: AZITHROMYCIN IVPB 500 MG/250 ML BAG IVPB SCH (10:24)
--- NOTE | 2019-11-02 11:33 | DS ---
Documentation entered by Kate Knapp SCRIBE, acting as scribe for Zeina Zuñiga NP. Physical Exam: SUBJECTIVE: Patient seen and examined. Slept well last night. Feels ready to go home. OBJECTIVE: Vital Signs Period Temp Pulse Resp BP Sys/Livingston Pulse Ox Last 24 Hr 97.9 F-99.1 F 69-94 16-20 106-130/64-80 98-99 PHYSICAL EXAM GENERAL: A&Ox3, in no acute distress. LUNGS: CTA. Overall much improved air movement. No wheezing, no rhonchi. HEART: Regular rate and rhythm, S1, S2 ABDOMEN: Soft, nontender, nondistended EXTREMITIES: 2+ pulses, warm, well-perfused, no edema. NEUROLOGICAL: Cranial nerves II through XII grossly intact. Normal speech, gait not observed. LABS Laboratory Results - last 24 hr 10/30/19 11/01/19 11/02/19 10:00 08:37 06:55 WBC 8.5 RBC 3.92 L Hgb 12.1 Hct 36.6 MCV 93.4 MCH 30.9 MCHC 33.0 RDW 12.2 Plt Count 261 MPV 8.7 Absolute Neuts (auto) 6.4 Neutrophils % 75.1 Lymphocytes % 18.8 D Monocytes % 5.4 Eosinophils % 0.4 D Basophils % 0.3 Sodium 136 Potassium 4.7 Chloride 106 Carbon Dioxide 21 Anion Gap 9 BUN 14.0 Creatinine 0.7 Est GFR (CKD-EPI)AfAm 137.78 Est GFR (CKD-EPI)NonAf 118.88 Random Glucose 166 H Calcium 8.6 Magnesium 2.1 Total Bilirubin 0.8 AST 42 H ALT 61 Alkaline Phosphatase 52 Total Protein 6.0 L Albumin 2.9 L Adenovirus (PCR) Negative Human Metapneumovir PCR Negative Influenza A (H1) PCR Negative Influenza B (RT-PCR) Negative Parainfluenza 1 (PCR) Negative Parainfluenza 2 (PCR) Negative Parainfluenza 3 (PCR) Negative RSV Type A (PCR) Negative RSV Type B (PCR) Negative Rhinovirus (PCR) Negative HOSPITAL COURSE: Date of Admission:10/29/19 Date of Discharge: 11/02/19 Pre-Hospital Course 39 year old male with no prior medical/surgical, does take xanax some times for anxiety arrived to ED at [facility] for cough with purulent discharge, SOB, fever, chills, body ache for 3 days, also complain of limited fluids/ po intake. Patient went to flu swab was negative and sen to ER for further evaluation. Subsequent Hospital Course 39 year-old male with no significant PMH admitted for severe sepsis secondary to pneumonia. Severe sepsis secondary to community-acquired pneumonia --met severe sepsis criteria on admission: T100.6, p101, infiltrate right lung base, lactic acid 2.5 --10/30 CT chest: extensive consolidation RLL --defervesced on hospital day #2 --cultures negative, flu negative --treated with ceftriaxone x 5 days, azithromycin x 5 days, duonebs, short course IV steroids; discharged on levofloxacin to complete 7 days of treatment --close outpatient followup, needs cxr in 6 weeks Mild anxiety --continued xanax PRN Minutes to complete discharge: 35 Discharge Summary Problems reviewed: Yes Reason For Visit: PNEUMONIA Current Active Problems Anxiety (Acute) Pneumonia (Acute) Condition: Improved - Instructions Diet, Activity, Other Instructions: You will need a repeat chest xray in 6 weeks[address] arrange with Dr. Alonzo. Referrals: Nydia Olivares MD [Non Staff, Medical] - 1 Week Disposition: HOME - Home Medications Comprehensive Discharge Medication List: Ambulatory Orders Alprazolam [Xanax] 0.5 mg PO PRN 10/29/19 This patient is new to me today: No Emergency Visit: Yes ED Registration Date: 10/29/19 Care time: The patient presented to the Emergency Department on the above date and was hospitalized for further evaluation of their emergent condition. Critical Care patient: No - Discharge Referral Referred to [facility] Zeina Hayes NP: This documentation has been prepared by the Ra jolly Maria, SCRIBE, under my direction and personally reviewed by me in its entirety. I confirm that the documentation accurately reflects all work, treatment, procedures, and medical decision making performed by me.
== END 2019-11-02 12:50 | disposition home or self-care (01) | DRG 871 ==
LOC: FER 17:04 → FM/S 19:14
PROVIDERS: ADMIT Hospitalist; ATTEND Nurse Practitioner Acute Care
DX: A41.9 Sepsis, unspecified organism (principal); J18.9 Pneumonia, unspecified organism; R65.20 Severe sepsis without septic shock; F41.9 Anxiety disorder, unspecified; L40.9 Psoriasis, unspecified
CPT/HCPCS: 36415; 71046-TC-FY; 71250-TC; 80048; 80053; 81003; 81015; 83605; 83735; 85025; 85027; 87040; 87070; 87205; 87633; 87804; 87899; 94640; 99283-25; J0131; J1644; J7030